=== PATIENT | female | born 1980 | race Asian ===

== ENCOUNTER 2016-08-10 07:59 | Emergency (ER) | payer BC ==
[2016-08-10] MEDS ORDERED: IBUPROFEN 600 MG TABLET PO STA (08:42)
[2016-08-10] MEDS ORDERED: IBUPROFEN 600 MG TABLET PO ONE (08:48)
== END 2016-08-10 09:54 | disposition home or self-care (01) ==
DX: R07.2 Precordial pain (principal); J45.909 Unspecified asthma, uncomplicated
CPT/HCPCS: 36415; 71020; 84484; 85025; 85651; 93005; 93010; 99283; 99284; A9270

== ENCOUNTER 2016-08-12 14:55 | Outpatient (CLI) | payer BC | END 2016-08-12 14:56 | disposition home or self-care (01) | DX: R50.9 Fever, unspecified (principal) ==

== ENCOUNTER 2016-11-05 00:07 | Emergency (ER) | payer BC, MEDICAID ==
[2016-11-05] MEDS ORDERED: ONDANSETRON ODT 4 MG TABLET TL STA (00:22)
[2016-11-05] MEDS ORDERED: ONDANSETRON ODT 4 MG TABLET ONE (00:23)
--- NOTE | 2016-11-05 00:49 | ED Physician Documentation ---
PD HPI NVD - Stated complaint Stated Complaint: HEADACHE,NECK PX,VOMITING - Chief complaint Chief Complaint: General - History obtained from History obtained from: Patient, Family - History of Present Illness Timing - onset: How many hours ago (1) Timing - details: Abrupt onset Associated symptoms: Other (neck pain) Contributing factors: Other (new medication) Similar symptoms before: Has not had sx before Recently seen: Clinic - Additonal information Additional information: Patient is a 36 year old female with dysfunctional uterine bleeding who was just started on progesterone. Patient states that she took the first dose this evening, and then experienced vomiting diarrhea and neck pain so patient came to the emergency department. Upon initial evaluation in the emergency department patient was feeling better and her symptoms had mainly resolved, she was just a bit nervous. Review of Systems Constitutional: denies: Fever, Chills Eyes: denies: Loss of vision Ears: denies: Ear pain, Drainage/discharge Nose: denies: Rhinorrhea / runny nose, Congestion Throat: denies: Dental pain / toothache, Sore throat Cardiac: denies: Chest pain / pressure, Palpitations Respiratory: denies: Dyspnea, Cough, Wheezing GI: reports: Nausea, Vomiting, Diarrhea. denies: Abdominal Pain, Constipation : denies: Dysuria Skin: denies: Rash, Lesions Musculoskeletal: reports: Neck pain. denies: Back pain, Extremity pain, Joint pain Neurologic: reports: Numbness. 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 - Present Medications Home Medications: Ambulatory Orders Medication Instructions Recorded Confirmed Naproxen [Naprosyn] 500 mg PO BID #20 tablet 08/10/16 Norgestimate-Ethinyl Estradiol 1 each PO DAILY 11/05/16 11/05/16 [Previfem Tablet] Ondansetron Odt [Zofran] 4 mg TL Q6H PRN #14 tablet 11/05/16 - Allergies Allergies/Adverse Reactions: Allergies Allergy/AdvReac Type Severity Reaction Status Date / Time No Known Drug Allergies Allergy Verified 11/05/16 00:15 - Social History Does the pt smoke?: No Smoking Status: Never smoker Does the pt drink ETOH?: No Does the pt have substance abuse?: No - Immunizations Immunizations are current?: Yes - POLST Patient has POLST: No PD ED PE NORMAL - Vitals Vital signs reviewed: Yes - General General: Alert and oriented X 3, No acute distress, Well developed/nourished - HEENT HEENT: Atraumatic, PERRL, Ears normal, Moist mucous membranes, Pharynx benign - Neck Neck: Supple, no meningeal sign, Other (full rom, no tenderness to palpation, no stiffness) - Cardiac Cardiac: RRR, No murmur, No rub - Respiratory Respiratory: No respiratory distress, Clear bilaterally - Abdomen Abdomen: Soft, Non tender, Non distended - Derm Derm: Normal color, Warm and dry, No rash - Extremities Extremities: No deformity, No tenderness to palpate, Normal ROM s pain, No edema , No calf tenderness / cord - Neuro Neuro: Alert and oriented X 3, certified 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 Patient was well appearing aside from being a bit anxious. Patient was treated with zofran and a lengthy discussion was had with the patient and her family. Patient stated that she was getting blood work tomorrow and that she had been fasting. patient stated that she was feeling better and wanted to go home. patient stated that she wanted to wait until tomorrow to get the blood tests. Upon discharge patient was well appearing, with normal vital signs in no acute distress. Departure - Departure Disposition: 01 Home, Self Care Clinical Impression: Medication reaction Condition: Good Instructions: ED Drug React Adverse Other Follow-Up: Sanaz Smith MD [Primary Care Provider] - As Needed Prescriptions: Ondansetron Odt [Zofran] 4 mg TL Q6H PRN #14 tablet PRN Reason: Nausea / Vomiting Comments: Your symptoms today may have been caused by the medication you took or it might have been a coincidence. For tomorrow's dose you should take the zofran 30 minutes before you take the medication. You should make sure you stay well hydrated. You can go to your blood draw tomorrow as previously set up. You may return to the emergency department at any time for new, worsening or uncontrollable symptoms.
[2016-11-05 00:53] VITALS: BP 132/77
== END 2016-11-05 00:55 | disposition home or self-care (01) ==
LOC: ED 00:07
DX: R11.2 Nausea with vomiting, unspecified (principal); R19.7 Diarrhea, unspecified; M54.2 Cervicalgia; T38.5X5A Adverse effect of other estrogens and progestogens, initial encounter
CPT/HCPCS: 99283; Q0162

== ENCOUNTER 2016-11-06 11:38 | Emergency (ER) | payer BC, MEDICAID ==
--- NOTE | 2016-11-06 12:29 | ED Physician Documentation ---
PD HPI FEMALE - Stated complaint Stated Complaint: BLOOD TRANSFUSION - Chief complaint Chief Complaint: General - History obtained from History obtained from: Patient - History of Present Illness Timing - onset: Other (36-year-old , not currently by history who at the age of 12 required a blood transfusion for heavy vaginal bleeding and was administered Provera with resolution. For the last 17 days she's been having ongoing bleeding, it is painless. She saw her physician a few days ago who prescribed control,Previfem, which shortly after taking the first dose 2 nights ago she felt sick, achy, headache. That is all gone, but continues to bleed. She had labs done yesterday which are not directly available to me but per her had a hemoglobin of 6 and presents as directed by her physician for a blood transfusion. She denies any pelvic pain or cramping.) Review of Systems Ten Systems: 10 systems reviewed and negative Constitutional: reports: Fatigue. denies: Weight Loss Respiratory: denies: Dyspnea, Cough GI: denies: Abdominal Pain, Nausea, Vomiting, Diarrhea : denies: Dysuria Neurologic: reports: Generalized weakness. 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 - Present Medications Home Medications: Ambulatory Orders Medication Instructions Recorded Confirmed Medroxyprogesterone Acetate 10 mg PO BID #30 tablet 11/06/16 [Provera] - Allergies Allergies/Adverse Reactions: Allergies Allergy/AdvReac Type Severity Reaction Status Date / Time No Known Drug Allergies Allergy Verified 11/05/16 00:15 - Social History Does the pt smoke?: No Smoking Status: Never smoker Does the pt drink ETOH?: No Does the pt have substance abuse?: No - Family History Family history: reports: Non contributory - Immunizations Immunizations are current?: Yes - POLST Patient has POLST: No PD ED PE NORMAL - Vitals Vital signs reviewed: Yes - General General: Alert and oriented X 3, No acute distress - HEENT HEENT: PERRL, EOMI - Neck Neck: Supple, no meningeal sign, No bony TTP - Cardiac Cardiac: RRR, No murmur - Respiratory Respiratory: No respiratory distress, Clear bilaterally - Abdomen Abdomen: Soft, Non tender - Extremities Extremities: No edema, No calf tenderness / cord - Neuro Neuro: Alert and oriented X 3, Normal speech - Psych Psych: Normal mood, Normal affect Results - Vitals Vitals: Vital Signs - 24 hr 11/06/16 11/06/16 11/06/16 11:43 12:42 13:28 Temperature 36.7 C Heart Rate 93 77 74 Respiratory 18 12 18 Rate Blood Pressure 126/62 105/64 110/64 O2 Saturation 100 100 100 11/06/16 11/06/16 11/06/16 13:54 14:06 14:45 Temperature 36.8 C 36.6 C Heart Rate 73 76 78 Respiratory 18 18 16 Rate Blood Pressure 106/64 106/60 99/56 L O2 Saturation 100 100 100 11/06/16 16:10 Temperature Heart Rate 80 Respiratory 18 Rate Blood Pressure 118/67 O2 Saturation 100 Oxygen O2 Source Room air - Labs Labs: Laboratory Tests 11/06/16 11/06/16 11/06/16 11:55 11:55 11:55 WBC 4.4 L RBC 2.62 L Hgb 6.9 L* Hct 21.4 L MCV 81.5 MCH 26.4 L MCHC 32.4 RDW 15.6 H Plt Count 355 MPV 6.9 L Neut # 2.6 Lymph # 1.3 L [place] # 0.3 Eos # 0.0 Baso # 0.0 Absolute Nucleated RBC 0.00 Nucleated RBCs 0.0 Sodium 136 Potassium 3.7 Chloride 103 Carbon Dioxide 24 Anion Gap 9.0 BUN 13 Creatinine 0.7 Estimated GFR (MDRD) 94 Glucose 102 H Calcium 8.7 Serum HCG, Qual Blood Type O POSITIVE Blood Type Recheck Antibody Screen NEGATIVE Crossmatch IS Only See Detail 11/06/16 11/06/16 11:55 12:15 WBC RBC Hgb Hct MCV MCH MCHC RDW Plt Count MPV Neut # Lymph # [place] # Eos # Baso # Absolute Nucleated RBC Nucleated RBCs Sodium Potassium Chloride Carbon Dioxide Anion Gap BUN Creatinine Estimated GFR (MDRD) Glucose Calcium Serum HCG, Qual NEGATIVE Blood Type Blood Type Recheck O POSITIVE Antibody Screen Crossmatch IS Only - Rads (name of study) Pelvic sono Radiology: Prelim report reviewed (negative) PD MEDICAL DECISION MAKING - ED course ED course: Consulted Dr. Montoya, on-call gynecology by phone who recommended Provera, 10 mg every 12 hours until bleeding stops, also iron supplementation. Received one unit of blood here, she already has iron supplements at home and will take those. Departure - Departure Disposition: Home, Self Care Clinical Impression: Blood loss anemia Menorrhagia Qualifiers: Menorrahagia type: with regular cycle Qualified Code(s): N92.0 - Excessive and frequent menstruation with regular cycle Condition: Good Record reviewed to determine appropriate education?: Yes Instructions: ED Bleed Irregular Vaginal Follow-Up: [facility] [Provider Group] Prescriptions: Medroxyprogesterone Acetate [Provera] 10 mg PO BID #30 tablet Comments: Take your iron supplementation, call the it project manager office on Tuesday, return if worse or if bleeding does not stop within the next 24-48 hours.
[2016-11-06 12:36] LABS: CALCIUM 8.7 mg/dL (8.5-10.3); CREATININE 0.7 mg/dL (0.4-1.0); POTASSIUM 3.7 mmol/L (3.5-5.0)
[2016-11-06 12:42] LABS: BASOPHILS % (AUTO) 0.5 %; EOSINOPHILS % (AUTO) 1.1 %; HCT - HEMATOCRIT 21.4 % (37.0-47.0); LYMPHOCYTES # (AUTO) 1.3 10^3/uL (1.5-3.5); LYMPHOCYTES % (AUTO) 30.6 %; MEAN CORPUSCULAR HEMOGLOBIN 26.4 pg (27.0-31.0); MEAN CORPUSCULAR HGB CONC 32.4 g/dL (32.0-36.0); MEAN CORPUSCULAR VOLUME 81.5 fL (81.0-99.0); MEAN PLATELET VOLUME 6.9 fL (7.9-10.8); MONOCYTES # (AUTO) 0.3 10^3/uL (0.0-1.0); MONOCYTES % (AUTO) 7.6 %; NEUTROPHILS # (AUTO) 2.6 10^3/uL (1.5-6.6); NEUTROPHILS % (AUTO) 60.2 %; RED BLOOD COUNT 2.62 10^6/uL (4.20-5.40); RED CELL DISTRIBUTION WIDTH 15.6 % (12.0-15.0); UNCORRECTED WHITE BLOOD COUNT 4.4 x10^3/uL; WHITE BLOOD COUNT 4.4 x10^3/uL (4.8-10.8)
[2016-11-06 12:43] LABS: HGB - HEMOGLOBIN 6.9 g/dL (12.0-16.0)
--- NOTE | 2016-11-06 16:13 | Ultrasound Preliminary Report ---
Exam: US Pelvic Complete - Non OB IMPRESSION: Normal pelvic ultrasound. [facility] SITE ID: [id number]
--- NOTE | 2016-11-06 16:15 | Ultrasound Report ---
REVISED: THIS REPORT WAS ORIGINALLY SIGNED ON 11/06/2016 @ 1615. ORDERS LINKED ON 12/20/2016. EXAM: PELVIC ULTRASOUND EXAM DATE: 11/06/2016 02:53 PM. CLINICAL HISTORY: Heavy vb. COMPARISON: None. TECHNIQUE: Realtime transabdominal pelvic scan performed to identify the uterus and adnexa and as an overview of other pelvic structures, followed by transvaginal scan to provide greater detail of the uterus and adnexa, with static image documentation. FINDINGS: Uterus: 9.7 x 5.3 x 4.8 cm, volume 129 cc. Retroverted position. Normal overall size and echotexture. Masses: None. Endometrium: 9 mm. Normal. Cervix: Unremarkable. Right Ovary: 3.8 x 2.3 x 2.1 cm, volume 10 cc. Normal echotexture and blood flow. Normal follicles are noted. Left Ovary: 3.0 x 2.7 x 2.0 cm, volume 8 cc. Normal echotexture and blood flow. Normal follicles are noted. Free Fluid: Trace Other: None. IMPRESSION: Normal pelvic ultrasound. [facility] Referring Provider Line: [phone] SITE ID: [id number]
[2016-11-06 17:19] VITALS: BP 111/67
== END 2016-11-06 17:30 | disposition home or self-care (01) ==
LOC: ED 11:38
DX: D50.0 Iron deficiency anemia secondary to blood loss (chronic) (principal); N92.0 Excessive and frequent menstruation with regular cycle; J45.909 Unspecified asthma, uncomplicated
CPT/HCPCS: 36415; 36430; 76830; 76856; 80048; 84703; 85025; 86850; 86900; 86901; 86920; 99284; A9270; P9016

== ENCOUNTER 2021-02-12 14:39 | Outpatient (CLI) | payer BC ==
--- NOTE | 2021-02-23 09:55 | Mammography Report ---
BILATERAL DIGITAL SCREENING MAMMOGRAM 3D/2D: 02/12/2021 CLINICAL: Routine screening. Comparison is made to exam dated: 01/04/2020 mammogram - [facility]. The tissue of both breasts is extremely dense, which lowers the sensitivity of mammography. No significant masses, calcifications, or other findings are seen in either breast. There has been no significant interval change. IMPRESSION: NEGATIVE There is no mammographic evidence of malignancy. A 1 year screening mammogram is recommended. This exam was interpreted at Station ID: [id number]. NOTE: For mammograms, a report in lay terms will be sent to the patient. Approximately 15% of breast malignancies will not be visualized mammographically. In the management of a palpable breast mass, a negative mammogram must not discourage biopsy of a clinically suspicious lesion. Electronically Signed By: Misael Colon M.D. ddp/penrad:02/23/2021 08:59:26 ACR BI-RADS Category 1: Negative [id number] PARENCHYMAL PATTERN: (VD) - The breast(s) demonstrate(s) extremely dense parenchyma, limiting the sen sitivity of mammography. BI-RADS CATEGORY: (1) - 1 RECOMMENDATION: (ANNUAL) - Recommend routine annual screening mammography. [id number] 1 year screening LATERALITY: (B)
== END 2021-02-12 14:40 | disposition home or self-care (01) ==
LOC: DI.N 14:39 → MERGE 14:45
DX: Z12.31 Encounter for screening mammogram for malignant neoplasm of breast (principal)

== ENCOUNTER 2022-06-03 10:24 | Emergency (ER) | payer OTHER ==
[2022-06-03 11:09] LABS: BASOPHILS % (AUTO) 0.2 %; EOSINOPHILS % (AUTO) 0.1 %; HCT - HEMATOCRIT 42.1 % (37.0-47.0); LYMPHOCYTES # (AUTO) 1.4 10^3/uL (1.5-3.5); LYMPHOCYTES % (AUTO) 8.8 %; MEAN CORPUSCULAR HEMOGLOBIN 29.7 pg (27.0-31.0); MEAN CORPUSCULAR HGB CONC 33.3 g/dL (32.0-36.0); MEAN CORPUSCULAR VOLUME 89.4 fL (81.0-99.0); MEAN PLATELET VOLUME 8.5 fL (7.9-10.8); MONOCYTES # (AUTO) 0.9 10^3/uL (0.0-1.0); MONOCYTES % (AUTO) 5.3 %; NEUTROPHILS # (AUTO) 13.8 10^3/uL (1.5-6.6); NEUTROPHILS % (AUTO) 85.2 %; PLT - PLATELET COUNT 283 10^3/uL (130-450); RED BLOOD COUNT 4.71 10^6/uL (4.20-5.40); RED CELL DISTRIBUTION WIDTH 12.2 % (12.0-15.0); WHITE BLOOD COUNT 16.2 x10^3/uL (4.8-10.8)
--- NOTE | 2022-06-03 11:09 | ED Physician Documentation ---
PD HPI ABD PAIN - Stated complaint Stated Complaint: ABD PX - Chief complaint Chief Complaint: Abd Pain - History obtained from History obtained from: Patient - History of Present Illness Timing - onset: Today (at 4 am during the night) Timing - duration: Hours (6-7) Timing - details: Abrupt onset, Still present Quality: Aching, Sharp, Pain Location: Periumbilical, RLQ Radiation: Right flank. No: Chest, Improved by: No: Eating Worsened by: No: Eating Associated symptoms: Nausea. No: Fever, Diarrhea, Constipation, Dysuria, Vaginal dc Similar symptoms before: No diagnosis (has had some right flank pain for a month or so, intermittent without any abd pain.) Recently seen: Not recently seen Review of Systems Constitutional: denies: Fever, Chills Nose: denies: Rhinorrhea / runny nose, Congestion Throat: denies: Sore throat Respiratory: denies: Cough GI: reports: Abdominal Pain, Nausea. denies: Abdominal Swelling, Vomiting, Constipation, Diarrhea : reports: LMP (May 23). 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 - Present Medications Home Medications: Ambulatory Orders Medication Instructions Recorded Confirmed Medroxyprogesterone Acetate 10 mg PO BID #30 tablet 11/06/16 [Provera] Docusate Sodium 100Mg Capsule 100 mg PO DAILY #15 cap 06/03/22 [Colace 100Mg Capsule] HYDROcod/ACETAM 5/325 [[place] 5/325] 1 ea PO Q6H PRN #10 tablet 06/03/22 Ibuprofen [Motrin] 600 mg PO TID PRN #20 tab 06/03/22 - Allergies Allergies/Adverse Reactions: Allergies Allergy/AdvReac Type Severity Reaction Status Date / Time No Known Drug Allergies Allergy Verified 06/03/22 10:51 - Living Situation Living Situation: reports: With spouse/s.o. Living Arrangement: reports: At home - Social History Does the pt smoke?: No Smoking Status: Never smoker Does the pt drink ETOH?: No Does the pt have substance abuse?: No - Immunizations Immunizations are current?: Yes - POLST Patient has POLST: No PD ED PE NORMAL - Vitals Vital signs reviewed: Yes - General General: Alert and oriented X 3, Well developed/nourished, Other (appears in pain mid abd.) - Neck Neck: Supple, no meningeal sign, No adenopathy - Cardiac Cardiac: No murmur. No: RRR (regular but tachycardic) - Respiratory Respiratory: No respiratory distress, Clear bilaterally - Abdomen Abdomen: Normal bowel sounds, Soft, Non distended, No organomegaly, Other (tender periumbilical and RLQ with local guarding and percussion tenderness. S ome general tenderness in addition, with referred pain to RLQ with palp left lower and right upper. No hernia felt. ) - Female Female : Deferred - Rectal Rectal: Deferred - Back Back: No CVA TTP - Derm Derm: Normal color, Warm and dry, No rash - Extremities Extremities: Normal ROM s pain, No calf tenderness / cord - Neuro Neuro: Alert and oriented X 3, No motor deficit, Normal speech Results - Vitals Vitals: Vital Signs - 24 hr 06/03/22 06/03/22 10:48 13:56 Temperature 37.2 C Heart Rate 110 H 100 Respiratory 16 18 Rate Blood Pressure 109/88 H 95/69 O2 Saturation 99 100 Oxygen O2 Source Room air - Labs Labs: Laboratory Tests 06/03/22 06/03/22 06/03/22 10:58 11:02 11:02 WBC 16.2 H RBC 4.71 Hgb 14.0 Hct 42.1 MCV 89.4 MCH 29.7 MCHC 33.3 RDW 12.2 Plt Count 283 MPV 8.5 Neut # (Auto) 13.8 H Lymph # (Auto) 1.4 L [place] # (Auto) 0.9 Eos # (Auto) 0.0 Baso # (Auto) 0.0 Absolute Nucleated RBC 0.00 Nucleated RBC % 0.0 Sodium 133 L Potassium 3.4 L Chloride 98 L Carbon Dioxide 24 Anion Gap 11.0 BUN 10 Creatinine 0.7 Estimated GFR (MDRD) 92 Glucose 107 H Calcium 9.0 Total Bilirubin 1.3 H AST 20 ALT 17 Alkaline Phosphatase 47 Total Protein 8.0 Albumin 4.6 Globulin 3.4 Albumin/Globulin Ratio 1.4 Lipase 26 Urine Color YELLOW Urine Clarity CLEAR Urine pH 7.0 Ur Specific [place] 1.020 Urine Protein NEGATIVE Urine Glucose (UA) NEGATIVE Urine Ketones 15 H Urine Occult Blood TRACE-INTA Urine Nitrite NEGATIVE Urine Bilirubin NEGATIVE Urine Urobilinogen 0.2 (NORMAL) Ur Leukocyte Esterase NEGATIVE Ur Microscopic Review NOT INDICATED Urine Culture Comments NOT INDICATED Urine HCG, Qual NEGATIVE C. glabrata (PCR) C. krusei (PCR) Crista species DNA T. vaginalis (PCR) Bact Vaginosis (PCR) 06/03/22 13:45 WBC RBC Hgb Hct MCV MCH MCHC RDW Plt Count MPV Neut # (Auto) Lymph # (Auto) [place] # (Auto) Eos # (Auto) Baso # (Auto) Absolute Nucleated RBC Nucleated RBC % Sodium Potassium Chloride Carbon Dioxide Anion Gap BUN Creatinine Estimated GFR (MDRD) Glucose Calcium Total Bilirubin AST ALT Alkaline Phosphatase Total Protein Albumin Globulin Albumin/Globulin Ratio Lipase Urine Color Urine Clarity Urine pH Ur Specific [place] Urine Protein Urine Glucose (UA) Urine Ketones Urine Occult Blood Urine Nitrite Urine Bilirubin Urine Urobilinogen Ur Leukocyte Esterase Ur Microscopic Review Urine Culture Comments Urine HCG, Qual C. glabrata (PCR) NEGATIVE C. krusei (PCR) NEGATIVE Crista species DNA NEGATIVE T. vaginalis (PCR) NEGATIVE Bact Vaginosis (PCR) NEGATIVE - Rads (name of study) abd/pelvic CT Radiology: Prelim report reviewed, EMP read indepedently (no acute process seen. Possible mild colonic wall thickening. Normal appendix. No adenopathy. No ureterolithiasis. ), See rad report PD Medical Decision Making - ED course Complexity details: re-evaluated patient (pain lessened with IV meds. Recheck abd is still mainly tender RLQ but with less guarding. ), considered differential (has had some right flank pains and now abrupt RLQ pain. Consider kidney stone, appendicitis, cyst with rupture, SBO, or other processes. Can get labs, UA, and cT.), d/w patient Reviewed Lab Results: CT not showing cause of the pain. Exam is still concerning for acute abd process with some peritoneal findings. However, not surgical at the moment. Consider false negative CT, and will have pt return for recheck if not completely resolved in 24-48 horus. ED course: no firm diagnsosis found. Will have her return for recheck. Departure - Departure Disposition: 01 Home, Self Care Clinical Impression: Abdominal pain, acute, right lower quadrant Condition: Stable Record reviewed to determine appropriate education?: Yes Instructions: ED Abdominal Pain Female Non-Specific Abdominal Pain Follow-Up: Eda Zepeda PA-C [Primary Care Provider] - Prescriptions: Docusate Sodium 100Mg Capsule [Colace 100Mg Capsule] 100 mg PO DAILY #15 cap Ibuprofen [Motrin] 600 mg PO TID PRN #20 tab PRN Reason: Pain HYDROcod/ACETAM 5/325 [[place] 5/325] 1 ea PO Q6H PRN #10 tablet PRN Reason: Pain Comments: Your urine test as well as kidney function test and measures blood test of your pancreas and liver are normal. Your CT scan does not show any obvious acute abnormality. It was possible mild inflammation of part of the colon but not definitive. (Colitis). Your white count is elevated suggesting an infectious cause but a localized infection is not identified. Your appendix is normal appearing on the CT scan at this point. Still pending are the test results for vaginal infection. Will call later today or tomorrow if there are any positive results. Otherwise its not clear the cause of your pain at this point. Stay well- hydrated and you can use some mild medication such as iibuprofen anti- inflammatory 2-3 times daily. Add a daily stool softener as well so you do not get constipated with medication. Add Tylenol every 4-6 hours if needed for pain or hydrocodone if needed for worse pain in the short-term. If this seems to resolve over the next 1 or 2 days then no further follow-up is needed. If it has not resolved and you are still needing medication for symptoms then follow-up in the next 1 to 2 days for reevaluation and possible retesting. Return to the ER sooner if worsening or you develop fevers, repetitive vomiting, bloody stool, increased pain despite medicine or other concerns. I sent your prescriptions to [facility]. I am prescribing a short course of narcotic pain medication for you. These are potentially dangerous and addictive medications that should be used carefully. These medications may constipate you. Take an [id number] stool softener such as docusate twice daily with plenty of water while taking these medications. If you go 24 hours without a bowel movement, take [id number] MiraLAX, per package instructions. Do not drink or drive while taking these medications. If you received narcotic or sedating medications while in the emergency department do not drive for 24 hours. Store this medication in a safe, secure place and out of reach of children. It is a violation of federal law to give or sell this medication to another person or to use in a manner other than prescribed. The ED will not refill narcotic prescriptions, including prescriptions lost or stolen. You can dispose of unwanted medications at the [facility]'s office or at several pharmacies such as [email or web address]. Forms: Activity restrictions Discharge Date/Time: 06/03/22 13:57
[2022-06-03 11:13] LABS: BILIRUBIN,URINE NEGATIVE (NEGATIVE); GLUCOSE, URINE (UA) NEGATIVE (NEGATIVE); KETONES,URINE (UA) 15 mg/dL (NEGATIVE); LEUKOCYTE ESTERASE, URINE NEGATIVE (NEGATIVE); NITRITE,URINE NEGATIVE (NEGATIVE); OCCULT BLOOD,URINE TRACE-INTA (NEGATIVE); PROTEIN,URINE NEGATIVE (NEGATIVE); UROBILINOGEN,URINE 0.2 (NORMAL) E.U./dL (NORMAL)
[2022-06-03 11:15] LABS: CLARITY,URINE CLEAR (CLEAR); HCG UR QUAL NEGATIVE
[2022-06-03 11:27] LABS: ALBUMIN 4.6 g/dL (3.2-5.5); ALBUMIN/GLOBULIN RATIO 1.4 (1.0-2.2); BILIRUBIN,TOTAL 1.3 mg/dL (0.2-1.0); CREATININE 0.7 mg/dL (0.4-1.0); POTASSIUM 3.4 mmol/L (3.5-5.0)
[2022-06-03] MEDS ORDERED: KETOROLAC 15 MG/ML VIAL IVP STA (11:29)
[2022-06-03] MEDS ORDERED: ACETAMINOPHEN 1,000 MG/100 ML 1,000 MG/100 ML BAG IV ONE (11:29)
[2022-06-03] MEDS ORDERED: SODIUM CHLORIDE 0.9% 1,000 ML IV STA (11:29)
[2022-06-03] MEDS ORDERED: iohexoL-300 100 ML VIAL ONE (11:39)
[2022-06-03] MEDS ORDERED: iohexoL-300 100 ML VIAL IVP ONE (12:17)
--- NOTE | 2022-06-03 12:33 | CT Report ---
PROCEDURE: ABDOMEN/PELVIS W INDICATIONS: right abd pain abrupt today CONTRAST: 100ml Omnipauqe 300 TECHNIQUE: After the administration of IV contrast, 5 mm thick sections acquired from the diaphragms to the symp hysis. 5 mm thick coronal and sagittal reformats were acquired. For radiation dose reduction, the f ollowing was used: automated exposure control, adjustment of mA and/or kV according to patient size. COMPARISON: None. FINDINGS: Image quality: Excellent. ABDOMEN: Lung bases: Lung bases are clear. Heart size is normal. Solid organs: Liver is enlarged measuring 18.2 cm with mild steatosis. The spleen is normal in size and enhancement. Gallbladder is unremarkable Biliary system is non dilated. Pancreas enhances norm ally. No adrenal nodules. Kidneys demonstrate normal size and enhancement, without hydronephrosis. Peritoneum and bowel: Bowel loops are nonobstructive. There is minimal appearance of pericolonic str anding within the sigmoid colon with thickening. It is incompletely distended. No free fluid or air. Appendix is normal. Nodes and vessels: No retroperitoneal or mesenteric adenopathy by size criteria. Aorta and inferior vena cava are normal in size. Miscellaneous: No ventral hernias. PELVIS: Genitourinary: Bladder wall thickness is normal. Uterus demonstrates areas of heterogeneous lobulat ion suggestive of fibroids. Low-attenuation foci are present within the ovaries bilaterally the large st measuring 1.5 cm. Miscellaneous: No inguinal hernias or adenopathy. Bones: No suspicious bony lesions. No vertebral body compression fractures. IMPRESSION: Heterogeneous appearance of the uterus which could be indicative of fibroids. Low-attenuation foci ar e present within the ovary suggestive of prominent follicles. Minimal pericolonic stranding within the sigmoid colon and thickening. Thickening could be secondary to incomplete distention. Early colitis cannot be definitively excluded given presence of minimal str anding. Reviewed by: Jenna Skaggs MD on 06/03/2022 12:32 PM PST Approved by: Jenna Skaggs MD on 06/03/2022 12:32 PM PST Station ID: [id number]
[2022-06-03 13:57] VITALS: BP 95/69
[2022-06-03 17:07] LABS: BACTERIAL VAGINOSIS DNA NEGATIVE (NEGATIVE); CANDIDA GLABRATA DNA NEGATIVE (NEGATIVE); CANDIDA GROUP DNA NEGATIVE (NEGATIVE); CANDIDA KRUSEI DNA NEGATIVE (NEGATIVE); TRICHOMONAS VAGINALIS DNA NEGATIVE (NEGATIVE)
[2022-06-04 18:54] LABS: CHLAMYDIA TRACHOMATIS DNA NEGATIVE (NEGATIVE); NEISSERIA GONORRHOEAE DNA NEGATIVE (NEGATIVE)
== END 2022-06-03 13:57 | disposition home or self-care (01) ==
LOC: ED 10:24
DX: R10.31 Right lower quadrant pain (principal)
CPT/HCPCS: 36415; 74177; 80053; 81003; 81025; 81514; 83690; 85025; 87491; 87591; 96365; 96375; 99284; J0131; Q9967; 81001; 87086; 87661

== ENCOUNTER 2022-09-06 10:50 | Outpatient (CLI) | payer OTHER ==
--- NOTE | 2022-09-07 09:04 | Mammography Report ---
BILATERAL DIGITAL SCREENING MAMMOGRAM 3D/2D: 09/06/2022 CLINICAL: Routine screening. Comparison is made to exams dated: 02/12/2021 mammogram and 01/04/2020 mammogram - [facility]. Both breasts are extremely dense, which lowers the sensitivity of mammography (category d />75% gland ular tissue). No significant masses, calcifications, or other findings are seen in either breast. There has been no significant interval change. IMPRESSION: NEGATIVE There is no mammographic evidence of malignancy. A 1 year screening mammogram is recommended. Based on the Tyrer Cuzick model (a risk assessment model) the patients lifetime risk is 15.9% and he r 10 year risk is 2.6%. According to the ACR, ACS, and NCCN guidelines, an annual breast MRI exam franklyn ng with mammogram is recommended if the patients lifetime risk is 20% or greater. This exam was interpreted at Station ID: [id number]. NOTE: For mammograms, a report in lay terms will be sent to the patient. Approximately 15% of breast malignancies will not be visualized mammographically. In the management of a palpable breast mass, a negative mammogram must not discourage biopsy of a clinically suspicious lesion. Electronically Signed By: Frank paige/baltazar:09/06/2022 14:00:57 letter sent: No_Letter ACR BI-RADS Category 1: Negative 3341F PARENCHYMAL PATTERN: (VD) - The breast(s) demonstrate(s) extremely dense parenchyma, limiting the sen sitivity of mammography. BI-RADS CATEGORY: (1) - 1 Mammogram [id number] 1 year screening LATERALITY: (B)
== END 2022-09-06 10:51 | disposition home or self-care (01) ==
LOC: DI.N 10:50
DX: Z12.31 Encounter for screening mammogram for malignant neoplasm of breast (principal)

== ENCOUNTER 2022-09-28 08:36 | Outpatient (CLI) | payer OTHER ==
--- NOTE | 2022-09-28 09:23 | Ultrasound Report ---
PROCEDURE: Abdomen Limited INDICATIONS: RIGHT LOWER QUAD ABD PAIN TECHNIQUE: Real-time focused scanning was performed of the abdomen, with image documentation. COMPARISONS: CT abdomen and pelvis dated 06/03/2022 FINDINGS: Liver: The liver demonstrates diffusely increased echotexture without focal abnormalities which is c onsistent with chronic hepatocellular disease/hepatic steatosis. Gallbladder: Gallbladder is normal in appearance without gallstones, gallbladder wall thickening, or pericholecystic fluid. Negative sonographic Chu's sign. Biliary ducts: Intrahepatic bile ducts are non-dilated. Extrahepatic bile duct caliber measures 4 m m. Normal is 6-7 mm or less in diameter, or 10 mm or less post-cholecystectomy. Pancreas: Visualized portions of the pancreas are sonographically normal. Right kidney: Right kidney is normal in size and echotexture. Right kidney measures 11.6 cm long. No hydronephrosis or nephrolithiasis. Right extrarenal pelvis measuring approximately 9 mm in diameter. No solid masses. No complex renal cystic lesions which require follow-up. Miscellaneous: No free abdominal fluid. IMPRESSION: 1. Abdomen without acute sonographic abnormalities. 2. Hepatic steatosis. 3. Incidental note of a small right extrarenal pelvis. No evidence for hydronephrosis. Reviewed by: Frank Woodson MD on 09/28/2022 9:21 AM PDT Approved by: Frank Woodson MD on 09/28/2022 9:21 AM PDT Station ID: [id number]
== END 2022-09-28 08:37 | disposition home or self-care (01) ==
LOC: DI 08:36
PROVIDERS: ATTEND Surgery
DX: R10.31 Right lower quadrant pain (principal); K76.0 Fatty (change of) liver, not elsewhere classified

== ENCOUNTER 2023-01-20 11:00 | Outpatient (CLI) | payer OTHER | END 2023-01-20 11:15 | disposition home or self-care (01) | LOC: LAB.N 11:00 | PROVIDERS: ATTEND Specialist | DX: O03.9 Complete or unspecified spontaneous abortion without complication (principal) | CPT/HCPCS: 36415; 84702 ==

== ENCOUNTER 2023-01-22 10:03 | Outpatient (CLI) | payer OTHER | END 2023-01-22 10:04 | disposition home or self-care (01) | LOC: LAB.N 10:03 | PROVIDERS: ATTEND Registered Nurse | DX: O03.9 Complete or unspecified spontaneous abortion without complication (principal) | CPT/HCPCS: 36415; 84702 ==

== ENCOUNTER 2023-01-27 17:19 | Outpatient (CLI) | payer OTHER | END 2023-01-27 17:20 | disposition home or self-care (01) | LOC: LAB.N 17:19 | PROVIDERS: ATTEND Registered Nurse | DX: O03.9 Complete or unspecified spontaneous abortion without complication (principal) | CPT/HCPCS: 36415; 84702 ==

== ENCOUNTER 2024-01-27 10:07 | Outpatient (CLI) | payer OTHER ==
--- NOTE | 2024-01-31 08:10 | Mammography Report ---
BILATERAL DIGITAL SCREENING MAMMOGRAM 3D/2D WITH EXAGGERATED CC: 01/27/2024 CLINICAL: Routine screening. Comparison is made to exams dated: 09/06/2022 mammogram, 02/12/2021 mammogram, and 01/04/2020 mammogram - [facility]. Both breasts are extremely dense, which lowers the sensitivity of mammography (category d />75% gland ular tissue). No significant masses, calcifications, or other findings are seen in either breast. There has been no significant interval change. IMPRESSION: NEGATIVE There is no mammographic evidence of malignancy. A 1 year screening mammogram is recommended. Based on the Tyrer Cuzick model (a risk assessment model) the patient's lifetime risk is 15.8% and he r 10 year risk is 2.8%. According to the ACR, ACS, and NCCN guidelines, an annual breast MRI exam franklyn ng with mammogram is recommended if the patient's lifetime risk is 20% or greater. This exam was interpreted at Station ID: [id number]. NOTE: For mammograms, a report in lay terms will be sent to the patient. Approximately 15% of breast malignancies will not be visualized mammographically. In the management of a palpable breast mass, a negative mammogram must not discourage biopsy of a clinically suspicious lesion. Electronically Signed By: Florina gambino/baltazar:01/27/2024 14:54:55 letter sent: No_Letter ACR BI-RADS Category 1: Negative 3341F PARENCHYMAL PATTERN: (VD) - The breast(s) demonstrate(s) extremely dense parenchyma, limiting the sen sitivity of mammography. BI-RADS CATEGORY: (1) - 1 RECOMMENDATION: (ANNUAL) - Recommend routine annual screening mammography. [id number] 1 year screening LATERALITY: (B)
== END 2024-01-27 10:08 | disposition home or self-care (01) ==
LOC: DI 10:07
PROVIDERS: ATTEND Nurse Practitioner
DX: Z12.31 Encounter for screening mammogram for malignant neoplasm of breast (principal)

== ENCOUNTER 2024-02-03 16:44 | Emergency (ER) | payer OTHER ==
[2024-02-03 17:09] VITALS: BP 130/78; O2SAT 100
--- NOTE | 2024-02-03 19:58 | ED Physician Documentation ---
History of Present Illness - Stated complaint Stated Complaint: RT EAR PX - Chief complaint Chief Complaint: Heent - History obtained from History obtained from: Patient - History of Present Illness Pain level max: 0 Pain level now: 0 - Additonal information Additional information: 43-year-old female complains of right ear pain/feeling clogged for several days. States tried to relieve the discomfort at home but was unable to. She states started after going swimming. Review of Systems Constitutional: denies: Fever, Chills Throat: denies: Sore throat GI: denies: Vomiting, Diarrhea : denies: Now EGA Skin: denies: Rash Musculoskeletal: denies: Neck pain, Back pain Neurologic: denies: Headache PD PAST MEDICAL HISTORY - Past Medical History Past Medical History: No Respiratory: Asthma GI: None - Past Surgical History Past Surgical History: Yes /[employer]: section - Present Medications Home Medications: Ambulatory Orders Medication Instructions Recorded Confirmed Medroxyprogesterone Acetate 10 mg PO BID #30 tablet 11/06/16 [Provera] Docusate Sodium 100Mg Capsule 100 mg PO DAILY #15 cap 06/03/22 [Colace 100Mg Capsule] HYDROcod/ACETAM 5/325 [[place] 5/325] 1 ea PO Q6H PRN #10 tablet 06/03/22 Ibuprofen [Motrin] 600 mg PO TID PRN #20 tab 06/03/22 Neomycin/Polymyx/Hc Otic Drops 4 drops OT TID #10 ml 02/03/24 [Cortisporin Ear Susp] - Allergies Allergies/Adverse Reactions: Allergies Allergy/AdvReac Type Severity Reaction Status Date / Time No Known Drug Allergies Allergy Verified 02/03/24 16:52 - Social History Does the pt smoke?: No Smoking Status: Never smoker Does the pt drink ETOH?: No Does the pt have substance abuse?: No - Immunizations Immunizations are current?: Yes - POLST Patient has POLST: No PD ED PE NORMAL - Vitals Vital signs reviewed: Yes - General General: Alert and oriented X 3, No acute distress - HEENT HEENT: Moist mucous membranes, Other (L ear normal, R ear - cerumen impaction o/w normal.) - Derm Derm: Warm and dry - Neuro Neuro: Alert and oriented X 3 Results - Vitals Vitals: Vital Signs - 24 hr 02/03/24 16:52 Temperature 37.1 C Heart Rate 73 Respiratory 16 Rate Blood Pressure 130/78 O2 Saturation 100 Oxygen O2 Source Room air PD Medical Decision Making - ED course Complexity details: re-evaluated patient, considered differential, d/w patient ED course: 43-year-old female with cerumen impaction in the right ear. After cerumen removal, there is erythema to the canal, tympanic membrane and sloughing of the skin on the canal. Will treat as otitis externa. Will have her follow-up with her doctor for further care. Hearing returned to normal after cerumen impaction removal. Patient counseled regarding signs and symptoms for which I believe and urgent re-evaluation would be necessary. Patient with good understanding of and agreement to plan and is comfortable going home at this time Departure - Departure Disposition: 01 Home, Self Care Clinical Impression: Impacted cerumen of right ear Otitis externa Qualifiers: Otitis externa type: unspecified type Chronicity: acute Laterality: right Qualified Code(s): H60.501 - Unspecified acute noninfective otitis externa, right ear Condition: Good Instructions: ED Wax Ear Home Removal, ED Otitis Externa Follow-Up: Eda Zepeda PA-C [Primary Care Provider] - Prescriptions: Neomycin/Polymyx/Hc Otic Drops [Cortisporin Ear Susp] 4 drops OT TID #10 ml Comments: Your earwax was removed tonight. You do have irritation of the ear canal and a small infection known as otitis externa. Your prescription was sent to [facility] in [place]. Please return if you worsen. Forms: PCP List
== END 2024-02-03 20:58 | disposition home or self-care (01) ==
LOC: ED 16:44
DX: H60.501 Unspecified acute noninfective otitis externa, right ear (principal); H61.21 Impacted cerumen, right ear; Z79.899 Other long term (current) drug therapy
CPT/HCPCS: 69209; 99282; 99283